=== PATIENT | female | born 1985 | race Caucasian/White ===

== ENCOUNTER 2020-02-15 13:38 | Emergency (ER) | payer OTHER ==
[2020-02-15 13:43] VITALS: BP 130/88; PULSE 79; TEMP 98.5; BMI 19.9
[2020-02-15] MEDS ORDERED: SILVER SULFADIAZINE 1% TOP CREAM 50 GM JAR TP ONE ×2 (14:21→14:24)
== END 2020-02-15 14:16 | disposition home or self-care (01) ==
LOC: JERFT 13:38
DX: L03.115 Cellulitis of right lower limb (principal)
CPT/HCPCS: 99283-25